=== PATIENT | female | born 1945 | race Caucasian/White ===

== ENCOUNTER → 2021-04-29 | Outpatient (CLI) | payer OTHER ==
[~2021-04-29] VITALS: Ht 170.2 cm; Wt 90.7 kg
[~2021-04-29] MED LIST: CULTURELLE CAP1 EAC1 PO; FLONASE 0.05%50 MCG NARES; VITAMIN D350 MCG PO; ZOLOFT100 MG PO; ZYRTEC10 M5 PO
--- NOTE | 2021-05-01 12:08 | PATH ---
[facility] [address] [place] [address] PATHOLOGY RPT PROCEDURE Name: ESCOBAR ASIFNE Room #: REG ELIAS Prado.#: [id number] Admission: 04/29/21 Date of : 49 Discharge: Report #: [id number] Path Case #: [id number] [facility] Accession Number: [id number] . 01 Material submitted: . gastrointestinal site - GASTRIC BIOPSY- R/O H. PYLORI . 01 Clinical history: . ESOPHAGOGASTRODUODENOSCOPY MELENA, DUODENITIS . 02 Diagnosis: Gastric biopsies: - Congestion and slight chronic inflammation. [facility] 04/30/2021 1159 Local . 02 Comment: Sections of the gastric biopsy reveal segments of gastric antral and gastric body mucosa showing congestion and slight chronic inflammation. A properly controlled immunoperoxidase stain for Helicobacter is negative for Helicobacter organisms. ([facility]; 04/30/2021) . Special stain performed: Immunoperoxidase stain for Helicobacter on A1 . 02 Electronically signed: . Silvio Varma MD, Pathologist NPI- [id number] . 01 Gross description: . The specimen is received in formalin, labeled "Dixie Asif, gastric biopsy, rule out H. pylori". Received are 4 segments of pale garcia tissue ranging in size from 0.2-0.5 cm in maximum dimensions. The specimen is entirely submitted in cassette A1. ([facility]; 04/29/2021) NRI/NRI 04/29/2021 1703 Local . 02 Pathologist provided ICD-10: K29.50 . 02 CPT . 825025, [id number] Specimen Comment: A courtesy copy of this report has been sent to [phone] Specimen Comment: Report sent to Specimen Comment: A duplicate report has been generated due to demographic updates. Performed at: [address] [address] PATHOLOGY RPT PROCEDURE Name: DIXIE ASIF Room #: REG CLI Zachery#: [id number] Admission: 04/29/21 Date of : 49 Discharge: Report #: [id number] Path Case #: [id number] [facility] [address] [id number] MD Matt Webster MD Phone: [phone] Performed at: [address] [place] [id number] MD Silvio Varma MD Phone: [phone]
== END ==
LOC: GI 09:28
PROVIDERS: ATTEND Internal Medicine
DX: K44.9 Diaphragmatic hernia without obstruction or gangrene (principal); K29.50 Unspecified chronic gastritis without bleeding; K31.89 Other diseases of stomach and duodenum; F32.9 Major depressive disorder, single episode, unspecified; Z87.891 Personal history of nicotine dependence; Z79.899 Other long term (current) drug therapy; Z98.890 Other specified postprocedural states; Z88.2 Allergy status to sulfonamides; Z88.8 Allergy status to other drugs, medicaments and biological substances; Z20.822 Contact with and (suspected) exposure to COVID-19
CPT/HCPCS: 62110; 62900